=== PATIENT | male | born 1950 | race African-American/Black ===

== ENCOUNTER 2021-07-28 22:29 | Emergency (ER) | payer OTHER ==
[~2021-07-28] VITALS: Ht 180.3 cm; Wt 61.2 kg
[2021-07-29 01:26] VITALS: BP 155/98
== END 2021-07-29 02:46 | disposition home or self-care (01) ==
LOC: EDH 22:29
DX: S30.0XXA Contusion of lower back and pelvis, initial encounter (principal); S00.83XA Contusion of other part of head, initial encounter; S00.511A Abrasion of lip, initial encounter; E11.9 Type 2 diabetes mellitus without complications; I10 Essential (primary) hypertension; Z98.890 Other specified postprocedural states; Y00.XXXA Assault by blunt object, initial encounter; Y93.89 Activity, other specified; Y92.89 Other specified places as the place of occurrence of the external cause; Y99.8 Other external cause status
CPT/HCPCS: 70450; 70486; 72100